=== PATIENT | female | born 1965 | race Caucasian/White ===

== ENCOUNTER → 2016-03-26 | Outpatient (CLI) | payer BC | END | disposition home or self-care (01) | LOC: LABWHC1 07:07 | PROVIDERS: ATTEND Internal Medicine Gastroenterology | DX: R19.7 Diarrhea, unspecified (principal) | CPT/HCPCS: 89055 ==

== ENCOUNTER 2020-08-12 08:30 | Emergency (ER) | payer BC ==
[2020-08-12 08:34] VITALS: RESP 18
[2020-08-12] MEDS ORDERED: MORPHINE SULFATE 4 MG/ML SYRINGE IV STA (09:01)
[2020-08-12] MEDS ORDERED: ONDANSETRON 4 MG/2 ML VIAL IVP STA (09:01)
--- NOTE | 2020-08-12 09:03 | ED ---
General Adult HPI - General Chief complaint: Abdominal Pain Stated complaint: Diverticulitis Time Seen by Provider: 08/12/20 08:45 Source: patient Mode of arrival: ambulatory Limitations: no limitations - History of Present Illness Initial comments: Dictation was produced using [employer] dictation software. please excuse any grammatical, word or spelling errors. Chief Complaint: 55-year-old female presents to the emergency department for left lower quadrant abdominal pain. History of Present Illness: This 55-year-old female she is currently on vacation. Patient states that she began having pain in the left lower quadrant that radiated to her back. Patient was seen by her primary care doctor and was told to come to the emergency department for concerns of nephrolithiasis versus diverticulitis. Patient states she does have constitutional symptoms. She has no history of diverticulitis. No vaginal discharge. No black or melanotic stools. Patient states that the pain is sharp and worse with palpation to left lower quadrant radiates to the back. Is not colicky in nature. She has been having some nonbloody diarrhea. The ROS documented in this emergency department record has been reviewed and confirmed by me. Those systems with pertinent positive or negative responses have been documented in the HPI. All other systems are other negative and/or noncontributory. PHYSICAL EXAM: General Impression: Alert and oriented x3, not in acute distress HEENT: Normocephalic atraumatic, extra-ocular movements intact, pupils equal and reactive to light bilaterally, mucous membranes moist. Cardiovascular: Heart regular rate and rhythm Chest: Able to complete full sentences, no retractions, no tachypnea Abdomen: abdomen soft, tenderness to the left lower quadrant,, non-distended, no organomegaly Musculoskeletal: Pulses present and equal in all extremities, no peripheral edema Motor: no focal deficits noted Neurological: CN II-XII grossly intact, no focal motor or sensory deficits noted Skin: Intact with no visualized rashes Psych: Normal affect and mood ED course: 55 yo female presents to the emergency Department with left lower quadrant abdominal pain. Clinical presentation suspicious for diverticulitis. As upon arrival are within acceptable limits. Patient given fluids and analgesia. CBC unremarkable. Potassium 3.1. Rest of her body panel is unremarkable. Urinalysis shows 63 right red blood cells and 44 white blood cells. Computed tomography scan abdomen and pelvis shows obstructing nephrolithiasis to the left distal ureter. There is also some signs of inflammatory colitis. Patient reevaluated at 10:50 AM she is found to be in stable medical condition. She states her symptoms are significantly improved. Patient will be discharged with referral to urology. - Related Data Home Medications Medication Instructions Recorded Confirmed Albuterol Inhaler [Ventolin Hfa 2 puff INHALATION RT-QID PRN 08/12/20 08/12/20 Inhaler] Budesonide/Formoterol Fumarate 1 puff INHALATION RT-DAILY 08/12/20 08/12/20 [Symbicort 80-4.5 Mcg Inhaler] Liraglutide [Saxenda] 18 mg SQ DAILY 08/12/20 08/12/20 Omeprazole Magnesium [PriLOSEC OTC] 20 mg PO DAILY 08/12/20 08/12/20 Previous Rx's Medication Instructions Recorded Ketorolac [Toradol] 10 mg PO Q6HR PRN #12 tab 08/12/20 Ondansetron Odt [Zofran Odt] 4 mg PO Q8HR PRN #12 tab 08/12/20 Allergies Allergy/AdvReac Type Severity Reaction Status Date / Time No Known Allergies Allergy Verified 08/12/20 10:34 Review of Systems ROS Statement: Those systems with pertinent positive or pertinent negative responses have been documented in the HPI. ROS Other: All systems not noted in ROS Statement are negative. Past Medical History Past Medical History: Asthma, GERD/Reflux, Hypertension Additional Past Medical History / Comment(s): HIATAL HERNIA History of Any Multi-Drug Resistant Organisms: None Reported Past Surgical History: Orthopedic Surgery, Tubal Ligation, Uterine Ablation Additional Past Surgical History / Comment(s): rt foot 2nd toe reattached, EGD 06/27/14 Past Anesthesia/Blood Transfusion Reactions: No Reported Reaction Past Psychological History: Depression Smoking Status: Never smoker Past Alcohol Use History: Occasional Past Drug Use History: None Reported - Past Family History Mother Family Medical History: No Reported History General Exam Limitations: no limitations Course Vital Signs 08/12/20 08/12/20 08:32 09:08 Temperature 98.0 F Pulse Rate 78 77 Respiratory 18 18 Rate Blood Pressure 133/92 151/99 O2 Sat by Pulse 98 97 Oximetry Medical Decision Making - Lab Data Result diagrams: 08/12/20 08:55 08/12/20 08:55 Lab Results 08/12/20 08/12/20 08/12/20 Range/Units 08:55 08:55 08:55 WBC 11.3 H (3.8-10.6) k/uL RBC 5.22 (3.80-5.40) m/uL Hgb 14.4 (11.4-16.0) gm/dL Hct 40.8 (34.0-46.0) % MCV 78.3 L (80.0-100.0) fL MCH 27.6 (25.0-35.0) pg MCHC 35.3 (31.0-37.0) g/dL RDW 13.3 (11.5-15.5) % Plt Count 319 (150-450) k/uL MPV 6.8 Neutrophils % 73 % Lymphocytes % 18 % Monocytes % 6 % Eosinophils % 1 % Basophils % 1 % Neutrophils # 8.3 H (1.3-7.7) k/uL Lymphocytes # 2.1 (1.0-4.8) k/uL Monocytes # 0.7 (0-1.0) k/uL Eosinophils # 0.1 (0-0.7) k/uL Basophils # 0.1 (0-0.2) k/uL Sodium 140 (137-145) mmol/L Potassium 3.1 L (3.5-5.1) mmol/L Chloride 102 (98-107) mmol/L Carbon Dioxide 24 (22-30) mmol/L Anion Gap 14 mmol/L BUN 15 (7-17) mg/dL Creatinine 0.57 (0.52-1.04) mg/dL Est GFR (CKD-EPI)AfAm >90 (>60 ml/min/1.73 sqM) Est GFR (CKD-EPI)NonAf >90 (>60 ml/min/1.73 sqM) Glucose 88 (74-99) mg/dL Calcium 9.4 (8.4-10.2) mg/dL Total Bilirubin 1.0 (0.2-1.3) mg/dL AST 29 (14-36) U/L ALT 42 H (4-34) U/L Alkaline Phosphatase 91 (38-126) U/L Total Protein 7.2 (6.3-8.2) g/dL Albumin 4.7 (3.5-5.0) g/dL Lipase 47 (23-300) U/L Urine Color Yellow Urine Appearance Cloudy H (Clear) Urine pH 6.0 (5.0-8.0) Ur Specific [place] 1.027 (1.001-1.035) Urine Protein 1+ H (Negative) Urine Glucose (UA) Negative (Negative) Urine Ketones 4+ H (Negative) Urine Blood Large H (Negative) Urine Nitrite Negative (Negative) Urine Bilirubin 1+ H (Negative) Urine Urobilinogen 2.0 (<2.0) mg/dL Ur Leukocyte Esterase Large H (Negative) Urine RBC 63 H (0-5) /hpf Urine WBC 44 H (0-5) /hpf Ur Squamous Epith Cells 2 (0-4) /hpf Urine Bacteria Moderate H (None) /hpf Urine Mucus Many H (None) /hpf Disposition Clinical Impression: Kidney stone Disposition: HOME SELF-CARE Condition: Good Instructions (If sedation given, give patient instructions): Kidney Stones (ED) Prescriptions: Ketorolac [Toradol] 10 mg PO Q6HR PRN #12 tab PRN Reason: kidney stone pain Ondansetron Odt [Zofran Odt] 4 mg PO Q8HR PRN #12 tab PRN Reason: Nausea Is patient prescribed a controlled substance at d/c from ED?: No Referrals: Yariel Vega MD [STAFF PHYSICIAN] - 1-2 days
[2020-08-12 09:16] LABS: Basophils # (A) 0.1 k/uL (0-0.2); Basophils % (A) 1 %; Eosinophils # (A) 0.1 k/uL (0-0.7); Eosinophils % (A) 1 %; HCT 40.8 % (34.0-46.0); HGB 14.4 gm/dL (11.4-16.0); Lymphocytes # (A) 2.1 k/uL (1.0-4.8); Lymphocytes % (A) 18 %; MCH 27.6 pg (25.0-35.0); MCHC 35.3 g/dL (31.0-37.0); MCV 78.3 fL (80.0-100.0); Mean Platelet Volume 6.8; Monocytes # (A) 0.7 k/uL (0-1.0); Monocytes % (A) 6 %; Neutrophils # (A) 8.3 k/uL (1.3-7.7); Neutrophils % (A) 73 %; Platelet Count 319 k/uL (150-450); RBC 5.22 m/uL (3.80-5.40); RDW 13.3 % (11.5-15.5); WBC 11.3 k/uL (3.8-10.6)
[2020-08-12 09:28] LABS: ALT 42 U/L (4-34); AST 29 U/L (14-36); African American GFR (CKD) >90 (>60 ml/min/1.73 sqM); Albumin 4.7 g/dL (3.5-5.0); Alkaline Phosphatase 91 U/L (38-126); Anion Gap 14 mmol/L; Blood Urea Nitrogen 15 mg/dL (7-17); Calcium 9.4 mg/dL (8.4-10.2); Carbon Dioxide 24 mmol/L (22-30); Chloride 102 mmol/L (98-107); Glucose 88 mg/dL (74-99); Lipase 47 U/L (23-300); Non-African American GFR(CKD) >90 (>60 ml/min/1.73 sqM); Potassium 3.1 mmol/L (3.5-5.1); Sodium 140 mmol/L (137-145); Total Protein 7.2 g/dL (6.3-8.2)
[2020-08-12 09:45] LABS: Appearance,Urine Cloudy (Clear); Bacteria,Urine Moderate /hpf; Bilirubin,Urine 1+ (Negative); Blood,Urine Large (Negative); Color,Urine Yellow; Glucose,Urine (UA) Negative (Negative); Ketones,Urine 4+ (Negative); Leukocyte Esterase,Urine Large (Negative); Mucus,Urine Many /hpf; Nitrite,Urine Negative (Negative); Protein,Urine 1+ (Negative); RBC,Urine 63 /hpf (0-5); Specific Gravity,Urine 1.027 (1.001-1.035); Squamous Epithelial Cell,Urine 2 /hpf (0-4); WBC,Urine 44 /hpf (0-5)
--- NOTE | 2020-08-12 10:00 | CT ---
EXAMINATION TYPE: CT abdomen pelvis w con DATE OF EXAM: 08/12/2020 COMPARISON: 01/21/2016 HISTORY: 55-year-old female Left lower quadrant pain, nausea, diarrhea, hematuria and urinary urgency . TECHNIQUE: Contiguous axial scanning of the abdomen and pelvis following administration of 100 ml Iso melanie 300 IV contrast. Delayed images through the kidneys and coronal/sagittal reconstructions perform ed. CT DLP: 1051.4 mGycm Automated exposure control for dose reduction was used. FINDINGS: Heart normal size with small anterior basilar pericardial fluid measuring 5 mm thick. Tiny hiatal hernia. Mild dependent atelectasis. No pleural effusion. Tiny subcentimeter hypodensity anterior left hepatic dome to small for accurate CT characterization, likely tiny cyst. Mild focal fat along the anterior falciform ligament. Portal venous system is paten t. No biliary ductal dilatation. Gallbladder, adrenal glands, spleen with tiny anterior hilar splenule, and pancreas appear within nor mal limits. 5 mm nonobstructive right renal calculus. There is mild hydronephrosis on the left with a 6 mm distal left ureteral calculus noted and delayed excretion of contrast from the left kidney. No dilated small bowel, free fluid, or free air. Normal appendix. No significant stool burden. There is circumferential wall thickening of the descend ing and proximal sigmoid colon with mild pericolonic fat stranding and engorged vasa recta. Mild circumferential bladder wall thickening may relate to underdistention. Uterus obliqued towards t he right and anteverted. Small bilateral ovaries. No abnormal fluid collection in the pelvis or pelvi c lymphadenopathy. Bones: Right L5 hemisacralization. Facet arthropathy lower lumbar spine. IMPRESSION: 1. A 6 MM DISTAL LEFT URETERAL CALCULUS WITH MILD OBSTRUCTIVE UROPATHY. 2. NONSPECIFIC MILD TO MODERATE INFECTIOUS OR INFLAMMATORY COLITIS INVOLVING THE DESCENDING AND PROXI MAL SIGMOID COLON. AFTER SUCCESSFUL TREATMENT, CONSIDER DIRECT VISUALIZATION IF ROUTINE SCREENING COL ONOSCOPY IS NOT BEING PERFORMED. 3. SOME CIRCUMFERENTIAL BLADDER WALL THICKENING MAY BE DUE TO NONDISTENTION. CORRELATE TO EXCLUDE CYS TITIS. 4. NONOBSTRUCTIVE 5 MM RIGHT RENAL CALCULUS.
[2020-08-12] MEDS ORDERED: cefTRIAXone IN SWFI 1,000 MG/10 ML SYRINGE IVP STA (10:07)
[2020-08-12] MEDS ORDERED: KETOROLAC 15 MG/ML 1 ML VIAL IVP STA (10:08)
[2020-08-12] MEDS ORDERED: SODIUM CHLORIDE 0.9% 1,000 ML IV STA (10:08)
[2020-08-12 11:12] VITALS: BP 137/92; PULSE 65; TEMP 98.2
== END 2020-08-12 11:34 | disposition home or self-care (01) ==
LOC: EC 08:30
DX: N20.2 Calculus of kidney with calculus of ureter (principal); I10 Essential (primary) hypertension; J45.909 Unspecified asthma, uncomplicated; K21.9 Gastro-esophageal reflux disease without esophagitis; Z79.51 Long term (current) use of inhaled steroids; Z79.899 Other long term (current) drug therapy
CPT/HCPCS: 36415; 80053; 83690; 85025; 81001; 74177; 99284; 96374; 96375; 96361; J2270; J2405; J1885; Q9967

== ENCOUNTER → 2020-09-17 | Outpatient (CLI) | payer BC ==
--- NOTE | 2020-09-18 14:56 | XR ---
EXAMINATION TYPE: XR KUB DATE OF EXAM: 09/17/2020 COMPARISON: None INDICATION: Renal stones TECHNIQUE: Single view abdomen supine view FINDINGS: There is a normal bowel gas pattern. Psoas margins are normal. No organomegaly is present. There is attempted sacralization of L5 more so on the right. IMPRESSION: 1. There is a calcification at the left hemipelvis could be a distal left ureteral stone measuring 0. 6 cm.
== END | disposition home or self-care (01) ==
LOC: RADXRMAIN 16:47
PROVIDERS: ATTEND Urology
DX: N20.0 Calculus of kidney (principal); N20.1 Calculus of ureter
CPT/HCPCS: 74018

== ENCOUNTER → 2020-09-30 | Outpatient (CLI) | payer BC ==
--- NOTE | 2020-09-30 09:39 | XR ---
EXAMINATION TYPE: XR KUB DATE OF EXAM: 09/30/2020 COMPARISON: 09/17/2020 INDICATION: Bilateral renal stones TECHNIQUE: Single view abdomen supine view FINDINGS: There is a normal bowel gas pattern. Psoas margins are normal. No organomegaly is present. Renal stones are not identified. There may be a distal ureteral stone measuring 0.6 cm this could be a phlebolith present previously. IMPRESSION: 1. Distal left hemipelvis calcification measuring 0.6 cm.
== END | disposition home or self-care (01) ==
LOC: RADXRMAIN 08:32
PROVIDERS: ATTEND Urology
DX: N20.1 Calculus of ureter (principal); M61.9 Calcification and ossification of muscle, unspecified
CPT/HCPCS: 74018

== ENCOUNTER → 2020-10-16 | Outpatient (CLI) | payer BC ==
[2020-10-16 15:56] VITALS: BMI 29.3
== END | disposition home or self-care (01) ==
LOC: DBWHC3 14:44
PROVIDERS: ATTEND Nurse Practitioner Adult Health
DX: K52.9 Noninfective gastroenteritis and colitis, unspecified (principal)
CPT/HCPCS: 97802